=== PATIENT | female | born 1995 | race African-American/Black ===

== ENCOUNTER 2024-06-15 00:04 | Inpatient (IN) | payer OTHER ==
[2024-06-15] MEDS: LACTATED RINGERS 1,000 ML IV SCH (23:40)
[2024-06-15] MEDS: OXYTOCIN 30 UNITS/500 ML NS 30 UNIT in SALINE 1 500ML.BAG IV SCH (23:55)
[2024-06-16] MEDS ORDERED: LIDOCAINE 0.5% (PF) 5 MG/ML (50 ML SDV) SQ PRN (00:13)
[2024-06-16] MEDS ORDERED: OXYTOCIN 10 UNIT/ML 1 ML VIAL IM PRN (00:13)
[2024-06-16] MEDS ORDERED: TRANEXAMIC 1,000 MG/100ML-NACL 1,000 MG in EMPTY BAG 1 BAG IV PRN (00:13)
[2024-06-16] MEDS ORDERED: LANOLIN CREAM 1 GM TUBE TOPICAL PRN (00:13)
[2024-06-16] MEDS ORDERED: HYDROCORTISONE 2.5% RECTAL CREAM 30 GM TUBE RECTAL PRN (00:13)
[2024-06-16] MEDS ORDERED: miSOPROStoL 200 MCG TAB RECTAL PRN (00:13)
[2024-06-16] MEDS ORDERED: TERBUTALINE 1 MG/ML VIAL SQ PRN (00:13)
[2024-06-16] MEDS ORDERED: diphenhydrAMINE 25 MG CAP PO PRN (00:13)
[2024-06-16] MEDS ORDERED: ZOLPIDEM 5 MG TAB PO PRN (00:13)
[2024-06-16] MEDS ORDERED: SIMETHICONE 80 MG CHEWABLE PO PRN (00:13)
[2024-06-16] MEDS ORDERED: METHYLERGONOVINE 0.2 MG/ML 1 ML AMP IM PRN (00:13)
[2024-06-16] MEDS ORDERED: diphenhydrAMINE 50 MG CAP PO PRN (00:13)
[2024-06-16] MEDS ORDERED: BENZOCAINE/MENTHOL SPRAY 1 GM/SPRAY AEROSOL TOPICAL PRN (00:13)
[2024-06-16] MEDS ORDERED: CARBOPROST TROMETHAMINE 250 MCG/ML 1 ML AMP IM PRN (00:13)
[2024-06-16] MEDS ORDERED: miSOPROStoL 200 MCG TAB PO PRN (00:13)
[2024-06-16] MEDS ORDERED: diphenhydrAMINE 50 MG/ML 1 ML VIAL IVP PRN ×2 (00:13)
--- NOTE | 2024-06-16 00:19 | P.HPOB ---
History of Present Illness H&P Date: 06/16/24 Chief Complaint: IUP at 38+ weeks, active labor 29-year-old at 38+ weeks presented in active labor to OB triage. Patient denies rupture of membranes at home. Patient has been receiving routine care which has been essentially uncomplicated. On blood work patient is a blood type of A+, rubella status immune, hepatitis B surface engine negative, HIV negative, hepatitis C nonreactive, group beta strep culture negative. Review of Systems Constitutional: Denies chills, Denies fatigue, Denies fever Ears, nose, mouth and throat: Denies headache Respiratory: Denies dyspnea Gastrointestinal: Denies nausea, Denies vomiting Genitourinary: Reports Medications and Allergies Home Medications Medication Instructions Recorded Confirmed Type No Known Home Medications 06/16/24 06/16/24 History Allergies Allergy/AdvReac Type Severity Reaction Status Date / Time No Known Allergies Allergy Verified 06/16/24 00:12 Exam Osteopathic Statement: *. No significant issues noted on an osteopathic structural exam other than those noted in the History and Physical/Consult. Intake and Output 06/15/24 06/15/24 06/16/24 14:59 22:59 06:59 Other: Weight 67.585 kg Patient examined in OB triage noted to be 8+ centimeters, heart tones were noted to be reassuring Assessment and Plan (1) Term Current Visit: Yes Status: Acute Code(s): Z34.90 - ENCNTR FOR SUPRVSN OF NORMAL , UNSP, UNSP TRIMESTER SNOMED Code(s): 15509384 (2) Active labor Current Visit: Yes Status: Acute Code(s): LDM9196 - SNOMED Code(s): 732467233 Plan: Admit to labor and delivery Anticipate precipitous delivery
--- NOTE | 2024-06-16 00:21 | P.PROBDLV ---
Vaginal Delivery Note - . Vaginal Delivery Note: Date of service 06/16/2024 Findings viable female delivered weight of 6 pounds 12 ounces 29-year-old 3 para 2 at 38+ weeks presents to labor and delivery in active labor. Patient was noted to be 8+ meters. Patient was moved to a labor and delivery suite where rupture of membranes was appreciated. Patient progressed rapidly to complete cervical dilation with an urge to push. Patient began pushing and had a normal spontaneous vaginal delivery of a viable female weight of 6 pounds 12 ounces. Umbilical cord was doubly clamped and cut placenta was delivered spontaneously intact with a three-vessel cord being noted. On inspection the patient's vaginal vault and the lacerations were appreciated. Estimated blood loss 200 cc
[2024-06-16 00:40] LABS: Basophils # (A) 0.04 10*3/uL (0.00-0.10); Basophils % (A) 0.5 %; Eosinophils # (A) 0.04 10*3/uL (0.04-0.35); Eosinophils % (A) 0.5 %; HCT 33.2 % (37.2-46.3); Lymphocytes # (A) 1.59 10*3/uL (0.90-5.00); Lymphocytes % (A) 20.3 %; MCH 27.3 pg (27.0-32.0); MCHC 33.1 g/dL (32.0-37.0); MCV 82.4 fL (80.0-97.0); Mean Platelet Volume 11.3 fL (9.5-12.2); Monocytes # (A) 0.69 10*3/uL (0.20-1.00); Monocytes % (A) 8.8 %; Neutrophils # (A) 5.44 10*3/uL (1.80-7.70); Neutrophils % (A) 69.5 %; Platelet Count 307 10*3/uL (140-440); RBC 4.03 10*6/uL (4.10-5.20); RDW 14.2 % (11.5-14.5); WBC 7.83 10*3/uL (4.50-10.00)
[2024-06-16] MEDS: IBUPROFEN 800 MG TAB PO SCH (02:44)
[2024-06-16] MEDS: SENNOSIDES-DOCUSATE SODIUM 1 EACH TAB PO SCH (08:00)
--- NOTE | 2024-06-16 09:24 | P.PNOBGVD ---
Subjective - Subjective Principal diagnosis: S/P NVD PPD #1 Patient reports: Reports appetite normal, Reports voiding normally, Reports pain well controlled, Reports ambulating normally [place]: doing well Objective - Latest Vital Signs Latest vital signs: Vital Signs Temp Pulse Resp BP Pulse Ox 06/16/24 08:01 98.0 F 86 16 124/75 99 06/16/24 06:01 97 F L 73 16 128/80 06/16/24 02:15 86 16 126/76 06/16/24 02:00 81 16 118/70 06/16/24 01:45 91 15 133/63 06/16/24 01:30 89 15 130/59 06/16/24 00:15 88 15 126/58 99 06/16/24 00:00 97.3 F L 101 H 16 139/60 97 Intake and Output 06/15/24 06/16/24 06/16/24 22:59 06:59 14:59 Intake Total 480 Output Total 295 Balance 185 Intake: Oral 480 Output: Urine 0 Output, Quantitative 295 Blood Loss Other: # Voids 1 Weight 67.585 kg - Exam Lungs: bilateral: normal Chest: Normal S1, Normal S2 Extremities: Present: normal Abdomen: Present: normal appearance, soft Uterus: Present: normal, firm - Labs Labs: Abnormal Lab Results - Last 24 Hours (Table) 06/15/24 Range/Units 23:45 RBC 4.03 L (4.10-5.20) 10*6/uL Hgb 11.0 L (12.0-15.0) g/dL Hct 33.2 L (37.2-46.3) % Assessment and Plan (1) Normal vaginal delivery Current Visit: Yes Status: Acute Code(s): O80 - ENCOUNTER FOR FULL-TERM UNCOMPLICATED DELIVERY SNOMED Code(s): 75432521 Plan: 1. cont pp care
[2024-06-17 06:07] LABS: Basophils # (A) 0.06 10*3/uL (0.00-0.10); Basophils % (A) 0.7 %; Eosinophils # (A) 0.17 10*3/uL (0.04-0.35); Eosinophils % (A) 1.9 %; HCT 29.7 % (37.2-46.3); HGB 9.9 g/dL (12.0-15.0); Lymphocytes % (A) 27.1 %; MCH 27.6 pg (27.0-32.0); MCHC 33.3 g/dL (32.0-37.0); MCV 82.7 fL (80.0-97.0); Monocytes # (A) 0.81 10*3/uL (0.20-1.00); Monocytes % (A) 9.2 %; Neutrophils # (A) 5.34 10*3/uL (1.80-7.70); Neutrophils % (A) 60.3 %; Platelet Count 259 10*3/uL (140-440); RBC 3.59 10*6/uL (4.10-5.20); RDW 14.2 % (11.5-14.5); WBC 8.85 10*3/uL (4.50-10.00)
[2024-06-17 08:11] VITALS: BP 126/88; PULSE 72; RESP 14; TEMP 98.6
--- NOTE | 2024-06-17 08:15 | P.DS ---
Providers Date of admission: 06/15/24 23:27 Expected date of discharge: 06/17/24 Attending physician: Kim Cobos Primary care physician: Stated None - Discharge Diagnosis(es) (1) Normal vaginal delivery Current Visit: Yes Status: Acute Hospital Course: Patient presented in labor. She underwent a normal vaginal delivery. course has been uneventful. She denies nausea, vomiting, chest pain, shortness of breath or calf pain. Patient will be discharged home day #2 in stable condition to follow-up with me in 6 weeks. Plan - Discharge Summary New Discharge Prescriptions: No Action No Known Home Medications Discharge Medication List No Known Home Medications 06/16/24 [History] Follow up Appointment(s)/Referral(s): Kim Cobos DO [Doctor of Osteopathic Medicine] - 08/01/24 9:45 am Discharge Disposition: HOME SELF-CARE
== END 2024-06-17 12:30 | disposition home or self-care (01) | DRG 560 ==
LOC: UNDOADMIN 00:04 → 4FBP 00:04 → UNDOADMIN 06-16 00:04
PROVIDERS: ADMIT Obstetrics & Gynecology; ATTEND Obstetrics & Gynecology
PROC: 10E0XZZ Delivery of Products of Conception, External Approach (ICD-10-PCS; principal; 2024-06-16)
PROC: 10907ZC Drainage of Amniotic Fluid, Therapeutic from Products of Conception, Via Natural or Artificial Opening (ICD-10-PCS; 2024-06-16)
PROC: 0UQG7ZZ Repair Vagina, Via Natural or Artificial Opening (ICD-10-PCS; 2024-06-16)
DX: O62.3 Precipitate labor (principal); O71.4 Obstetric high vaginal laceration alone; Z37.0 Single live birth; Z3A.38 38 weeks gestation of pregnancy
CPT/HCPCS: 85025; 86850; 86900; 86901